=== PATIENT | male | born 1935 | race Caucasian/White ===

== ENCOUNTER 2022-01-20 21:53 | Inpatient (IN) | payer OTHER ==
[~2022-01-20] VITALS: Ht 177.8 cm; Wt 104.4 kg
--- NOTE | 2022-01-20 21:54 | NUR ---
Placed in room 2 . Placed on career education teacher, blood pressure machine and pulse oximeter. To gown for exam. Side rails up.Triage by Aide at the bedside. Report given to Primary nurse Trixie by Aide PALACIOS.
--- NOTE | 2022-01-20 21:57 | NUR ---
Patient BIB [facility] from home for c/o left sided facial drooping. Patient's daughter noted patient had left side facial drooping and drooling from left side of mouth approx 7 today. Patient reports pain 0/10 at this time. Patient has hx of DM; BS 191 at this time. Patient A/Ox3, GCS, VSS, resp even and unlabored. Patient denies chest pain and/or SOB at this time. Patient's daughter at bedside. Patient lying in bed with safety precautions in place and connected to monitor.
--- NOTE | 2022-01-20 21:57 | NUR ---
TREVON Bird at bedside examining patient.
--- NOTE | 2022-01-20 22:00 | NUR ---
CODE STROKE ACTIVATED.
--- NOTE | 2022-01-20 22:00 | NUR ---
# 20 gauge angiocath placed to left AC. Use of asceptic technique. Opsite placed over site. Blood return noted. Blood for lab drawn from site. Flushed with 10 cc of normal saline. No evidence of infiltration noted. Patient tolerated well.
--- NOTE | 2022-01-20 22:09 | NUR ---
PT TAKEN TO CT VIA G[facility]EXA ACCOMPANIED BY PRIMARY NURSE JOVAN.
[2022-01-20 22:20] LABS: BASOPHILS # (AUTO) 0.1 K/uL (0.0-0.2); BASOPHILS % (AUTO) 0.7 % (0.0-2.0); EOSINOPHILS # (AUTO) 0.2 K/uL (0.0-0.4); HEMATOCRIT 32.9 % (36-54); HEMOGLOBIN 11.6 g/dL (14.0-18.0); LYMPHOCYTES # (AUTO) 1.3 K/uL (1.0-5.5); LYMPHOCYTES % (AUTO) 14.9 % (20.5-51.5); MEAN CORPUSCULAR HEMOGLOBIN 30 pg (27-31); MEAN CORPUSCULAR HGB CONC 35 % (32-36); MEAN CORPUSCULAR VOLUME 85 fL (79.0-98.0); MONOCYTES # (AUTO) 0.6 K/uL (0.0-1.0); MONOCYTES % (AUTO) 6.3 % (1.7-9.3); NEUTROPHILS # (AUTO) 6.9 K/uL (1.8-7.7); NEUTROPHILS % (AUTO) 76.1 % (40.0-70.0); PLATELET COUNT (AUTO) 271 K/uL (130-430); RED BLOOD CELL COUNT(AUTO) 3.86 MIL/uL (4.2-6.2)
--- NOTE | 2022-01-20 22:20 | NUR ---
PT BACK TO ER FROM CT.
[2022-01-20 22:33] LABS: ANION GAP 9 (5-15); CALCIUM 8.7 mg/dL (8.4-11.0); CHLORIDE 103 mmol/L (98-107); CREATININE 1.86 mg/dL (0.55-1.30); GLUCOSE 193 mg/dL (70-99); UREA NITROGEN, BLOOD 25 mg/dL (8-21)
--- NOTE | 2022-01-20 22:34 | NUR ---
Tele neurologist Yajaira speaking and examining patient via tele med Aditya.
[2022-01-20 22:39] LABS: PROTHROMBIN TIME 9.8 SECS (9.5-12.5)
[2022-01-20 22:41] LABS: ALANINE AMINOTRANSFERASE 15 U/L (12-78); ALBUMIN 3.5 g/dL (3.4-4.8); ASPARTATE AMINOTRANSFERASE 19 U/L (10-37); TOTAL BILIRUBIN 0.5 mg/dL (0.0-1.0)
--- NOTE | 2022-01-20 22:44 | NUR ---
COVID SAMPLE COLLECTED AND SENT TO LAB
[2022-01-20] MEDS ORDERED: ASPIRIN 325 MG TABLET PO ONE (22:45)
--- NOTE | 2022-01-20 23:11 | NUR ---
Patient's daughter states she will go home to find patient's medication and will bring in later today. Patient's med rec is pending daughter's call for medication verification.
[2022-01-20] MEDS ORDERED: NACL 0.9% 1,000 ML IV ONE (23:45)
--- NOTE | 2022-01-21 00:55 | NUR ---
ER MD Manzo at bedside speaking with patient's daughter and son at bedside.
--- NOTE | 2022-01-21 01:12 | NUR ---
Received call from patient's daughter, Silke Escalona stating patient's home medications for medication rec. Medications inputed into chart.
[2022-01-21] MEDS ORDERED: INSU100V9 SQ (01:30)
[2022-01-21] MEDS ORDERED: LEVO100T9 PO (01:30)
[2022-01-21] MEDS ORDERED: SIMV-43 PO (01:30)
[2022-01-21] MEDS ORDERED: LOSA50TA3 PO (01:30)
--- NOTE | 2022-01-21 02:14 | NUR ---
Patient resting in bed with side rails raised. Patient's son at bedside. Nad noted at this time.
--- NOTE | 2022-01-21 02:30 | NUR ---
Admit bed requested Patient will be admitted to care of Dr Mead. Admitted to Tele unit. Diagnosis Stroke Inpatient (Yes or No) yes Observation (Yes or No) no Orientation concerns or request close to nursing station (Yes or No) no Covid Status negative On vent or bipap no Isolation requirements no Needs a sitter no From Home (Yes or if No enter name of facility) home Requires Dialysis (Yes or No) no Med Rec Completed (Yes of No) yes
--- NOTE | 2022-01-21 03:30 | NUR ---
Patient will be admitted to care of Dr Mead. Admitted to Tele unit. Will go to room 132A. Belongings list completed. Complete and up to date summary report printed. SBAR report given to PHILIP Saldana at bedside with opportunity for questions.
--- NOTE | 2022-01-21 04:00 | NUR ---
neuro assessment attended to.bedside swallow attended to.pt.has passed the bedside swallow.note no compromise to swallow capacity;function.
--- NOTE | 2022-01-21 04:00 | NUR ---
pt.received via er-dept.pt.admit dx:cva.to attend to the cva/stroke protocol interventions.no c/o pain,nausea.pt.ordered npo diet status following bedside swallow.pt.presents iv access location lt.hand.cutaneous assessment.pt.absent wounds.call light/telephone placed w/in access of the pt.
[2022-01-21 04:30] VITALS: BP_SYST 147
--- NOTE | 2022-01-21 05:56 | NUR ---
CONSULTATION PAGED/CALLED Reason for Consultation: STROKE Person Who was Notified: DR DIAZ VIA TEXT Consulting Physician: DR DIAZ Crime Lab Technician Specialty: Ordering Physician: YAEL
--- NOTE | 2022-01-21 06:46 | NUR ---
pt.assessed.blood glucose assessed value:98mg/dl.no c/o pain,nausea.pt.assessed for cleanliness.pt.cleaned.pt.capable to reposition self.call light/telephone placed w/in access of the pt.pt.
[2022-01-21 08:00] VITALS: BP_SYST 148
--- NOTE | 2022-01-21 08:10 | NUR ---
Initial note Received patient awake, alert/oriented x4, verbalizes needs known. Observe left facial droop, no slurred speech no c/o numbness or tingling, speech clear. Vital signs normal, SR on playground monitor. No c/o SOB/ discomfort or pain, no signs distress. Respiration even and unlabored, lungs clear. IV saline lock to left hand patent, no sign of infiltration. All safety measure are secured, bed in low position, call light w/in reached, continue to monitor.
--- NOTE | 2022-01-21 09:43 | NUR ---
SWALLOW EVALUATION LEFT MESSAGE TO SPEECH THERAPY TO AND MADE AWARE OF CONSULT. PER JULES WHITTEN HE ALREADY TEXTED THE SPEECH THERAPY RE SWALLOW EVAL.
[2022-01-21] MEDS ORDERED: LEVOTHYROXINE SODIUM 0.1 MG TABLET PO ONE (09:45)
[2022-01-21] MEDS ORDERED: LOSARTAN POTASSIUM 50 MG TABLET (COZAAR) PO ONE (09:45)
[2022-01-21] MEDS ORDERED: GLUCOSE (DEXTROSE) ORAL GEL -Adults PO PRN (10:15)
[2022-01-21] MEDS ORDERED: D5W 1,000 ML IV PRN (10:15)
[2022-01-21] MEDS ORDERED: DEXTROSE 50%-WATER 50 ML DISP.SYRIN IVP PRN (10:15)
--- NOTE | 2022-01-21 12:00 | NUR ---
Rounding Patient stable, no c/o SOB/chest discomfort, Dr. Mead/family at bedside
--- NOTE | 2022-01-21 12:18 | NUR ---
CONSULTATION PAGED/CALLED Reason for Consultation: [] CVA Person Who was Notified: [] [facility] [place] BY DR CONLEY Consulting Physician: [] [facility] [place] COVERING DR EDGE Ux Interaction Designer Specialty: [] CARDIO Ordering Physician: [] DR CONLEY
[2022-01-21 12:21] LABS: ANION GAP 6 (5-15); CALCIUM 8.5 mg/dL (8.4-11.0); CHLORIDE 106 mmol/L (98-107); CREATININE 1.71 mg/dL (0.55-1.30); GLUCOSE 107 mg/dL (70-99); UREA NITROGEN, BLOOD 24 mg/dL (8-21)
--- NOTE | 2022-01-21 13:05 | NUR ---
Notes (Neurologist)at bedside seeing patient, family at bedside
[2022-01-21] MEDS ORDERED: ASPIRIN 81 MG TABLET(ECOTRIN) PO ONE (13:45)
[2022-01-21 14:20] VITALS: BP_SYST 126
--- NOTE | 2022-01-21 15:20 | NUR ---
CONSULTATION PAGED/CALLED Reason for Consultation: [] HX OF BLADDER CA Person Who was Notified: [] DR Alex SPENCER Consulting Physician: [] DR Alex SPENCER Drum Tester Specialty: [] UROLOGIST Ordering Physician: [] DR CONLEY
--- NOTE | 2022-01-21 16:00 | NUR ---
Rounding No c/o pain/chest discomfort, no signs of distress, all safety secured, continue to monitor
--- NOTE | 2022-01-21 16:07 | NUR ---
Clarified the Stat ECHO order, but [facility] said that it can be done tomorrow.
--- NOTE | 2022-01-21 16:16 | NUR ---
Notes Therapist at bedside for speech and swallow eval.
[2022-01-21] MEDS ORDERED: METOPROLOL SUCCINATE 25 MG TAB.SR.24H (TOPROL XL) PO ONE (16:30)
[2022-01-21] MEDS ORDERED: ATORVASTATIN 20 MG TABLET PO ONE (16:30)
--- NOTE | 2022-01-21 16:33 | NUR ---
PT WAS SEEN FOR DYSPHAGIA. PT WA SABLE TO SAFELY SWALLOW PUREE DIET WITH THIN LIQUID. MILD DIFFICULTY WITH MASTICATION SKILLS. RECOMMENDATION PUREE DIET WITH THIN LIQUID
[2022-01-21] MEDS: INSULIN REGULAR, HUMAN 100 UNITS/ML, 3 ML VIAL (humuLIN R) SUBCUT PRN ×2 (17:25→23:02)
--- NOTE | 2022-01-21 18:30 | NUR ---
Closing note No c/o pain/SOB, or chest discomfort, left facial droop, speech dysarthric, vital signs w/in norm, will endorse to oncoming nurse
[2022-01-21 18:45] VITALS: BP_SYST 148
[2022-01-21] MEDS ORDERED: SIMVASTATIN 20 MG TABLET PO SCH (21:00)
[2022-01-22 00:47] VITALS: BP_SYST 145
[2022-01-22 03:15] LABS: BILIRUBIN,URINE NEGATIVE (NEGATIVE); BLOOD, URINE 1+ (NEGATIVE); CLARITY/URINE CLEAR (CLEAR); COLOR,URINE YELLOW (YELLOW); GLUCOSE,URINE TRACE (NEGATIVE); KETONES,URINE NEGATIVE (NEGATIVE); LEUKOCYTE ESTERASE ,URINE NEGATIVE (NEGATIVE); NITRITE, URINE NEGATIVE (NEGATIVE); PROTEIN URINE 2+ (NEGATIVE); UROBILINOGEN,URINE 0.2 (0.2-1.0)
[2022-01-22 03:41] LABS: BARBITURATE, URINE NEGATIVE (NEG <=200); BENZODIAZEPINE, URINE NEGATIVE (NEG <=150); CANNABINOID, URINE NEGATIVE (NEG <=50); COCAINE, URINE NEGATIVE (NEG <=150); METHAMPHETAMINES SCREEN,URINE NEGATIVE (NEG <=500); OPIATE, URINE NEGATIVE (NEG <=100); PHENCYCLIDINE SCREEN,URINE NEGATIVE (NEG <=25); UR TRICYCLIC ANTIDEPRESSANTS NEGATIVE (NEG <=300); URINE AMPHETAMINE NEGATIVE (NEG <=500); URINE METHADONE NEGATIVE (NEG <=200); URINE OXYCODONE SCREEN NEGATIVE (NEG <=100); URINE PROPOXYPHENE SCREEN NEGATIVE (NEG <=300)
[2022-01-22 04:06] LABS: BACTERIA,URINE None Seen /HPF (None Seen); MUCUS,URINE 1+ /LPF (None Seen); WBC,URINE 0-3 /HPF (0-3)
[2022-01-22] MEDS: LEVOTHYROXINE SODIUM 0.1 MG TABLET PO SCH (06:50)
[2022-01-22 08:10] LABS: BASOPHILS # (AUTO) 0.1 K/uL (0.0-0.2); BASOPHILS % (AUTO) 0.6 % (0.0-2.0); EOSINOPHILS # (AUTO) 0.2 K/uL (0.0-0.4); EOSINOPHILS % (AUTO) 1.8 % (0.0-4.0); HEMATOCRIT 32.4 % (36-54); HEMOGLOBIN 11.4 g/dL (14.0-18.0); LYMPHOCYTES % (AUTO) 9.8 % (20.5-51.5); MEAN CORPUSCULAR HEMOGLOBIN 30 pg (27-31); MEAN CORPUSCULAR HGB CONC 35 % (32-36); MEAN CORPUSCULAR VOLUME 86 fL (79.0-98.0); MONOCYTES # (AUTO) 0.6 K/uL (0.0-1.0); MONOCYTES % (AUTO) 6.4 % (1.7-9.3); NEUTROPHILS # (AUTO) 7.9 K/uL (1.8-7.7); NEUTROPHILS % (AUTO) 81.4 % (40.0-70.0); PLATELET COUNT (AUTO) 267 K/uL (130-430); RED BLOOD CELL COUNT(AUTO) 3.76 MIL/uL (4.2-6.2); RED CELL DISTRIBUTION WIDTH 14.3 % (9.0-15.0); WHITE BLOOD COUNT (AUTO) 9.8 K/uL (4.8-10.8)
[2022-01-22 08:18] VITALS: BP_SYST 188
--- NOTE | 2022-01-22 08:18 | NUR ---
INITIAL ROUNDS Received pt AAOx3, forgetful at times, neuro check and NIH done, noted slight left-sided facial droop. No s/s resp distress, no c/o pain or discomfort. Pt's BP high-Alyce Kapadia here and informed stated to give with small amount of water in spite of NPO for test. Plan of care for the day reviewed with pt-he verbalized his understanding. Pain management, disease process, skin and safety discussed-teach back done. Side rails up x3, bed alarm on and room across from nursing station for safety. Call light within reach.
[2022-01-22 08:32] LABS: ALANINE AMINOTRANSFERASE 14 U/L (12-78); ALBUMIN 3.1 g/dL (3.4-4.8); ANION GAP 8 (5-15); ASPARTATE AMINOTRANSFERASE 20 U/L (10-37); CALCIUM 8.8 mg/dL (8.4-11.0); CHLORIDE 105 mmol/L (98-107); CREATININE 1.68 mg/dL (0.55-1.30); GLUCOSE 124 mg/dL (70-99); TOTAL BILIRUBIN 0.6 mg/dL (0.0-1.0); UREA NITROGEN, BLOOD 23 mg/dL (8-21)
[2022-01-22] MEDS: ATORVASTATIN 20 MG TABLET PO SCH (09:17)
[2022-01-22] MEDS: METOPROLOL SUCCINATE 25 MG TAB.SR.24H (TOPROL XL) PO SCH (09:17)
[2022-01-22] MEDS: LOSARTAN POTASSIUM 50 MG TABLET (COZAAR) PO SCH (09:17)
--- NOTE | 2022-01-22 09:20 | NUR ---
BP MEDS/SWALLOW Pt given his BP medications-noted when pt drank through a straw he started to cough a little-immediately stopped pt. Pt able to drink water with cup without coughing-so removed all straws-will endorse to staff. Pt educated to not use a straw-pr stated okay.
[2022-01-22 11:28] VITALS: BP_SYST 152
[2022-01-22] MEDS: INSULIN REGULAR, HUMAN 100 UNITS/ML, 3 ML VIAL (humuLIN R) SUBCUT PRN ×2 (12:37→17:53)
[2022-01-22 16:10] VITALS: BP_SYST 144
--- NOTE | 2022-01-22 18:37 | NUR ---
CLOSING NOTE Pt resting quietly in bed with no s/s resp distress, no c/o pain or discomfort. Aspiration, skin and safety precautions remain in placer. Call light within reach.
[2022-01-22 20:00] VITALS: BP_SYST 121
[2022-01-23] VITALS: BP_SYST 141
[2022-01-23] MEDS: LEVOTHYROXINE SODIUM 0.1 MG TABLET PO SCH (07:05)
[2022-01-23 08:00] VITALS: BP_SYST 129
--- NOTE | 2022-01-23 08:30 | NUR ---
Initial Notes Patient is AOX4. Patient is awake, just returned from CT. HOB elevated. Patient does have a slight left face droop. No drooling. No s.s of distress noted. Breathing is even and nonlabored, on room air. No SOB noted. Patient denies pain. Vital signs obtained, as documented. Bed locked, alarm on, and at lowest position. call light within reach.
[2022-01-23] MEDS: METOPROLOL SUCCINATE 25 MG TAB.SR.24H (TOPROL XL) PO SCH (10:14)
[2022-01-23] MEDS: ATORVASTATIN 20 MG TABLET PO SCH (10:14)
[2022-01-23] MEDS: LOSARTAN POTASSIUM 50 MG TABLET (COZAAR) PO SCH (10:15)
[2022-01-23 11:13] VITALS: BP_SYST 134
--- NOTE | 2022-01-23 12:00 | NUR ---
Notes Patient is eating lunch. No s.s of distress noted. Breathing is even and nonlabored, on room air. Patient denies pain. Denies SOB. Patient denies N/V. Safety precautions in place and call light within reach.
[2022-01-23] MEDS: INSULIN REGULAR, HUMAN 100 UNITS/ML, 3 ML VIAL (humuLIN R) SUBCUT PRN ×2 (13:03→16:51)
[2022-01-23] MEDS ORDERED: ASPI-1457 PO (14:57)
[2022-01-23] MEDS ORDERED: METO-540 PO (14:57)
[2022-01-23] MEDS ORDERED: LIP20 PO (14:57)
--- NOTE | 2022-01-23 16:35 | NUR ---
ST EVALUATION COMPLETED. ST TX NOT INDICATED AT THIS TIME. RECOMMEND PUREE/THIN LIQUIDS WITH 1:1 ASSISTANCE AND FULL ASPIRATION PRECAUTIONS.
[2022-01-23 16:52] VITALS: BP_SYST 111
--- NOTE | 2022-01-23 17:00 | NUR ---
Notes Dr. Mead came to see patient. aware of MRI results. Patient okay for d/c. MD spoke to daughter.
[2022-01-23 17:15] VITALS: BP_SYST 111
--- NOTE | 2022-01-23 18:33 | NUR ---
D/C Patient Patient given medication reconciliation form and D/C instructions. Exit Care provided. Patient verbalized understanding. MD discussed with patient the results and treatment provided. Ambulatory with steady gait for discharge to home. Patient in stable condition, ID band removed. IV catheter removed, intact and dressing applied, no active bleeding. Rx of given. Patient educated on pain management. All belongings sent with patient.
--- NOTE | 2022-01-24 08:20 | NUR ---
Dispo code 01
== END 2022-01-23 18:20 | disposition home health service (06) | DRG 64 ==
LOC: SED 21:53 → STU 01-21 02:51
PROVIDERS: ADMIT Internal Medicine; ATTEND Internal Medicine
DX: I63.9 Cerebral infarction, unspecified (principal); N17.0 Acute kidney failure with tubular necrosis; E78.00 Pure hypercholesterolemia, unspecified; E03.9 Hypothyroidism, unspecified; E78.5 Hyperlipidemia, unspecified; N40.0 Benign prostatic hyperplasia without lower urinary tract symptoms; R29.702 NIHSS score 2; R29.810 Facial weakness; I12.9 Hypertensive chronic kidney disease with stage 1 through stage 4 chronic kidney disease, or unspecified chronic kidney disease; E11.22 Type 2 diabetes mellitus with diabetic chronic kidney disease; N18.9 Chronic kidney disease, unspecified; Z20.822 Contact with and (suspected) exposure to COVID-19; Z85.51 Personal history of malignant neoplasm of bladder; Z79.4 Long term (current) use of insulin; Z79.899 Other long term (current) drug therapy
CPT/HCPCS: 36415; 70450-TC; 70551; 71045; 76376; 76770; 80048; 80053; 80307; 81000; 82962; 84484; 85025; 85610-TC; 85730-TC; 86886; 86900; 86901; 92610-GN; 93005; 93306; 93880; 96360; 99285; G0378; J1815

== ENCOUNTER 2022-02-15 09:40 | Inpatient (IN) | payer OTHER ==
[~2022-02-15] VITALS: Ht 180.3 cm; Wt 102.1 kg
[2022-02-15 09:40] VITALS: BP_SYST 106
[~2022-02-15 09:40] MED LIST: ASPI-1457 PO; INSU100V9 SQ; LEVO100T9 PO; LIP20 PO; LOSA50TA3 PO; METO-540 PO
--- NOTE | 2022-02-15 09:40 | NUR ---
BROUGHT IN BY [facility] AND PLACED IN BED #4, TRIAGED. REPORT GIVEN TO BRITTA
--- NOTE | 2022-02-15 09:40 | NUR ---
TREVON Cruz at bedside examining patient.
--- NOTE | 2022-02-15 09:45 | NUR ---
RECEIVED PT IN BED #4 FROM HOME BIB BLS FOR CC OF PAIN POST MECHANICAL FALL X12 HOURS. PT IS STABLE, NAD, VSS, AAOx3, DIFFICULTY MOVING, WAS STUCK ON THE BATHROOM SHOWER CHAIR IT BROKE. PT TO BE FURTHER ASSESSED BY ED MD FOR PLAN OF CARE WITH DISPOSITION.
[2022-02-15] MEDS ORDERED: NACL 0.9% 1,000 ML IV ONE (10:00)
[2022-02-15 10:30] LABS: BASOPHILS # (AUTO) 0.1 K/uL (0.0-0.2); BASOPHILS % (AUTO) 0.6 % (0.0-2.0); HEMATOCRIT 35.4 % (36-54); HEMOGLOBIN 12.1 g/dL (14.0-18.0); LYMPHOCYTES # (AUTO) 0.5 K/uL (1.0-5.5); LYMPHOCYTES % (AUTO) 1.9 % (20.5-51.5); MEAN CORPUSCULAR HEMOGLOBIN 29 pg (27-31); MEAN CORPUSCULAR HGB CONC 34 % (32-36); MEAN CORPUSCULAR VOLUME 85 fL (79.0-98.0); MONOCYTES # (AUTO) 1.3 K/uL (0.0-1.0); MONOCYTES % (AUTO) 5.4 % (1.7-9.3); NEUTROPHILS # (AUTO) 22.3 K/uL (1.8-7.7); NEUTROPHILS % (AUTO) 92.1 % (40.0-70.0); PLATELET COUNT (AUTO) 338 K/uL (130-430); RED BLOOD CELL COUNT(AUTO) 4.15 MIL/uL (4.2-6.2); RED CELL DISTRIBUTION WIDTH 14.5 % (9.0-15.0); WHITE BLOOD COUNT (AUTO) 24.2 K/uL (4.8-10.8)
[2022-02-15 10:53] LABS: ANION GAP 15 (5-15); CHLORIDE 101 mmol/L (98-107); CREATININE 2.63 mg/dL (0.55-1.30); GLUCOSE 283 mg/dL (70-99); UREA NITROGEN, BLOOD 34 mg/dL (8-21)
[2022-02-15 11:08] LABS: PROTHROMBIN TIME 10.3 SECS (9.5-12.5)
--- NOTE | 2022-02-15 11:09 | NUR ---
LAB REPORTED LACTIC ACID 5.5, DR. AGUILAR MADE AWARE.
[2022-02-15 11:12] LABS: ALANINE AMINOTRANSFERASE 24 U/L (12-78); ALBUMIN 3.7 g/dL (3.4-4.8); ASPARTATE AMINOTRANSFERASE 49 U/L (10-37)
[2022-02-15 11:16] LABS: ACETAMINOPHEN < 1 ug/mL (1-30); ALCOHOL, BLOOD < 3 mg/dL (<10)
[2022-02-15] MEDS ORDERED: PIPERACILLIN/TAZO 3.375 GM in NS 50 ML IV ONE (11:30)
[2022-02-15] MEDS ORDERED: NACL 0.9% 1,250 ML IV ONE (11:30)
[2022-02-15] MEDS ORDERED: LINEZOLID 300 ML IV ONE (11:30)
[2022-02-15] MEDS ORDERED: PIPERACILLIN/TAZOBACTAM 3.375 GM/VIAL (ZOSYN) IV ONE (11:43)
[2022-02-15] MEDS ORDERED: MORPHINE 2 MG/ML INJ. SYRINGE IVP ONE (11:45)
[2022-02-15 12:07] LABS: CKMB RELATIVE INDEX 0.4 (0.0-2.9); CREATINE KINASE MB 9.2 ng/mL (0-3.6)
--- NOTE | 2022-02-15 13:45 | NUR ---
Admit bed requested Patient will be admitted to care of . Admitted to TELEMETRY unit. Diagnosis MECHANICAL FALL AND ERIN Inpatient (Yes or No) Y Observation (Yes or No) N Orientation concerns or request close to nursing station (Yes or No) N Covid Status PENDING On vent or bipap N Isolation requirements N Needs a sitter N From Home (Yes or if No enter name of facility) Y Requires Dialysis (Yes or No) N Med Rec Completed (Yes of No) Y
--- NOTE | 2022-02-15 15:15 | NUR ---
Patient will be admitted to care of DR. SAWANT. Admitted to TELE unit. Will go to room 132C. Belongings list completed. Complete and up to date summary report printed. SBAR report to be given at bedside with opportunity for questions.
[2022-02-15 15:20] VITALS: BP_SYST 133
--- NOTE | 2022-02-15 15:54 | NUR ---
RECEIVED PATIENT FROM ED VIA [employer]. A/O X4. VSS. AFEBRILE. RESPIRATIONS EVEN AND UNLABORED. NO SOB NOTED. PATIENT LAYING FLAT IN BED WITH NECK BRACE COLLAR IN PLACE. DENIES PAIN AT THIS TIME. PATIENT INSTRUCTED TO CONTINUE TO LAY FLAT UNTIL EVALUATED BY NEUROLOGIST. PATIENT VERBALIZED UNDERSTANDING. ORIENTED TO ROOM AND CALL LIGHT SYSTEM. NO ACUTE DISTRESS NOTED. WILL CONTINUE TO MONITOR FOR SAFETY. Serafin TURNER RN.
[2022-02-15 16:01] VITALS: BP_SYST 133
[2022-02-15 16:18] VITALS: BP_SYST 127
--- NOTE | 2022-02-15 17:51 | NUR ---
DR. CONLEY CALLED FOR ADMISSION ORDERS. DR. CONLEY STATES HE WILL BE IN LATER AND WRITE ORDER BUT GAVE A DIET ORDER AND TYLENOL 650MG PO Q6 PRN FOR MILD PAIN. Serafin GONZALEZ RN.
[2022-02-15] MEDS: 0.45% NACL 1,000 ML IV SCH (19:45)
[2022-02-15] MEDS ORDERED: TEMAZEPAM 7.5 MG CAPSULE PO SCH (21:00)
[2022-02-15] MEDS: ACETAMINOPHEN 325 MG TABLET PO PRN (21:44)
[2022-02-16] VITALS: BP_SYST 110
[2022-02-16] MEDS: 0.45% NACL 1,000 ML IV SCH ×2 (05:39→15:36)
[2022-02-16 07:11] LABS: ALANINE AMINOTRANSFERASE 34 U/L (12-78); ALBUMIN 2.7 g/dL (3.4-4.8); ANION GAP 8 (5-15); ASPARTATE AMINOTRANSFERASE 125 U/L (10-37); CALCIUM 8.4 mg/dL (8.4-11.0); CHLORIDE 106 mmol/L (98-107); CREATININE 2.19 mg/dL (0.55-1.30); GLUCOSE 213 mg/dL (70-99); TOTAL BILIRUBIN 0.8 mg/dL (0.0-1.0); UREA NITROGEN, BLOOD 34 mg/dL (8-21)
--- NOTE | 2022-02-16 07:20 | NUR ---
OPENING NOTE PT IN BED, SLEEPING WITH EVEN AND NON-LABORED BREATHING. IVF RUNNING ORDERED WITH SITE REMAIN PATENT AND INTACT. NO S/S INFILTRATION OR INFECTION NOTED. FACIAL COLLAR PLACED DUE TO S/P FALL. NO S/S OF PAIN OR DISCOMFORT NOTED. BED IS LOCKED AND AT LOW POSITION. CALL LIGHT WITHIN REACH. WILL CONT TO MONITOR
[2022-02-16 07:22] LABS: BASOPHILS % (AUTO) 0.3 % (0.0-2.0); EOSINOPHILS # (AUTO) 0.1 K/uL (0.0-0.4); EOSINOPHILS % (AUTO) 0.9 % (0.0-4.0); HEMATOCRIT 30.1 % (36-54); HEMOGLOBIN 10.7 g/dL (14.0-18.0); LYMPHOCYTES # (AUTO) 1.2 K/uL (1.0-5.5); LYMPHOCYTES % (AUTO) 9.6 % (20.5-51.5); MEAN CORPUSCULAR HEMOGLOBIN 30 pg (27-31); MEAN CORPUSCULAR HGB CONC 35 % (32-36); MEAN CORPUSCULAR VOLUME 85 fL (79.0-98.0); MONOCYTES % (AUTO) 7.8 % (1.7-9.3); NEUTROPHILS # (AUTO) 10.4 K/uL (1.8-7.7); NEUTROPHILS % (AUTO) 81.4 % (40.0-70.0); PLATELET COUNT (AUTO) 246 K/uL (130-430); RED BLOOD CELL COUNT(AUTO) 3.53 MIL/uL (4.2-6.2); RED CELL DISTRIBUTION WIDTH 14.5 % (9.0-15.0); WHITE BLOOD COUNT (AUTO) 12.8 K/uL (4.8-10.8)
[2022-02-16 08:00] VITALS: BP_SYST 96
[2022-02-16] MEDS: LOSARTAN POTASSIUM 50 MG TABLET (COZAAR) PO SCH (09:00)
[2022-02-16] MEDS: METOPROLOL SUCCINATE 25 MG TAB.SR.24H (TOPROL XL) PO SCH (09:00)
--- NOTE | 2022-02-16 10:50 | NUR ---
FAMILY MEMBER AT BEDSIDE.
[2022-02-16] MEDS ORDERED: IPRATROPIUM/ALBUTEROL SULFATE 3 ML AMPUL.NEB (DUONEB) INH PRN (12:30)
[2022-02-16 12:31] VITALS: BP_SYST 127
[2022-02-16] MEDS: ASPIRIN 81 MG TABLET(ECOTRIN) PO SCH (12:33)
[2022-02-16] MEDS: ATORVASTATIN 20 MG TABLET PO SCH (12:33)
--- NOTE | 2022-02-16 14:00 | NUR ---
AMBULATION; AMBULATES TO BATHROOM WITH WALKER WITH TWO PERSONS ASSISTANCE. PT NEEDS HELP WITH SITTING UP AND SITTING DOWN.
[2022-02-16 17:24] VITALS: BP_SYST 131
--- NOTE | 2022-02-16 18:00 | NUR ---
NOTES FAMILY MEMBER AT BEDSIDE, FEEDING PT.
--- NOTE | 2022-02-16 18:50 | NUR ---
CLOSING NOTE PT IN BED, RESTING WITH EVEN AND NON-LABORED BREATHING. IVF RUNNING ORDERED WITH SITE REMAIN PATENT AND INTACT. NO S/S INFILTRATION OR INFECTION NOTED. C COLLAR ON. NO S/S OF PAIN OR DISCOMFORT NOTED. BED IS LOCKED AND AT LOW POSITION. CALL LIGHT WITHIN REACH. REPOSITIONED. WILL ENDORSE CARE TO PRODUCTION SUPERVISOR NURSE.
[2022-02-16 20:21] VITALS: BP_SYST 123
[2022-02-16] MEDS ORDERED: NALOXONE HCL 0.4 MG/ML AMP (NARCAN) IVP PRN (20:45)
[2022-02-16] MEDS ORDERED: MORPHINE 2 MG/ML INJ. SYRINGE IVP PRN (21:00)
[2022-02-16] MEDS: TEMAZEPAM 15 MG CAPSULE PO SCH (21:14)
[2022-02-17 00:36] VITALS: BP_SYST 135
[2022-02-17] MEDS: 0.45% NACL 1,000 ML IV SCH ×3 (01:45→22:10)
--- NOTE | 2022-02-17 05:32 | NUR ---
PATIENT REMOVED HIS C-COLLAR,SAYING THAT IT IS UNCOMFORTABLE ,EDUCATION WAS DONE AND C-COLLAR PUT BACK ORDERED BY .
[2022-02-17 05:53] LABS: BASOPHILS % (AUTO) 0.3 % (0.0-2.0); EOSINOPHILS # (AUTO) 0.2 K/uL (0.0-0.4); HEMATOCRIT 26.5 % (36-54); HEMOGLOBIN 9.4 g/dL (14.0-18.0); LYMPHOCYTES # (AUTO) 1.3 K/uL (1.0-5.5); LYMPHOCYTES % (AUTO) 11.5 % (20.5-51.5); MEAN CORPUSCULAR HEMOGLOBIN 30 pg (27-31); MEAN CORPUSCULAR HGB CONC 35 % (32-36); MEAN CORPUSCULAR VOLUME 86 fL (79.0-98.0); MONOCYTES # (AUTO) 0.8 K/uL (0.0-1.0); MONOCYTES % (AUTO) 6.5 % (1.7-9.3); NEUTROPHILS # (AUTO) 9.3 K/uL (1.8-7.7); NEUTROPHILS % (AUTO) 79.7 % (40.0-70.0); PLATELET COUNT (AUTO) 224 K/uL (130-430); RED CELL DISTRIBUTION WIDTH 14.7 % (9.0-15.0); WHITE BLOOD COUNT (AUTO) 11.7 K/uL (4.8-10.8)
[2022-02-17] MEDS: LEVOTHYROXINE SODIUM 0.1 MG TABLET PO SCH (06:06)
[2022-02-17 06:07] LABS: ALANINE AMINOTRANSFERASE 30 U/L (12-78); ALBUMIN 2.4 g/dL (3.4-4.8); ANION GAP 7 (5-15); ASPARTATE AMINOTRANSFERASE 88 U/L (10-37); CALCIUM 7.5 mg/dL (8.4-11.0); CHLORIDE 103 mmol/L (98-107); CHOLESTEROL 92 mg/dL (<200); CREATININE 1.97 mg/dL (0.55-1.30); GLUCOSE 204 mg/dL (70-99); HDL CHOLESTEROL 44 mg/dL (>45); LDL CHOLESTEROL 35 mg/dL (<100); THYROID STIMULATING HORMONE 7.27 uIu/mL (0.34-4.82); TRIGLYCERIDES 140 mg/dL (30-150); UREA NITROGEN, BLOOD 31 mg/dL (8-21)
[2022-02-17 06:42] LABS: CREATINE KINASE MB 0.5 ng/mL (0-3.6)
--- NOTE | 2022-02-17 07:15 | NUR ---
OPENING NOTE PT IN BED, RESTING WITH EVEN AND NON-LABORED BREATHING. IVF RUNNING ORDERED WITH SITE REMAIN PATENT AND INTACT. NO S/S INFILTRATION OR INFECTION NOTED.NO S/S OF PAIN OR DISCOMFORT NOTED. BED IS LOCKED AND AT LOW POSITION. CALL LIGHT WITHIN REACH. REPOSITIONED. WILL CONT TO MONITOR
[2022-02-17 08:00] VITALS: BP_SYST 134
[2022-02-17] MEDS: LOSARTAN POTASSIUM 50 MG TABLET (COZAAR) PO SCH (08:41)
[2022-02-17] MEDS: ASPIRIN 81 MG TABLET(ECOTRIN) PO SCH (08:41)
[2022-02-17] MEDS: ATORVASTATIN 20 MG TABLET PO SCH (08:42)
[2022-02-17] MEDS: METOPROLOL SUCCINATE 25 MG TAB.SR.24H (TOPROL XL) PO SCH (08:42)
--- NOTE | 2022-02-17 11:09 | NUR ---
KURTIS CARPENTER; DR. HERNANDEZ AT BEDSIDE, ASSESSING PT. PROVIDED THE IMPORTANCE OF WEARING C COLLAR. Addendum: 02/17/22 at 1627 by Saray Steen RN BENIGNO
[2022-02-17 12:00] VITALS: BP_SYST 127
--- NOTE | 2022-02-17 14:23 | NUR ---
NOTSE; PT OFF C COLLAR. EDUCATED THE INDICATION OF C COLLAR. PLACE IT BACK ON PT. PT VERBALIZES UNDERSTANDING. FAMILY AT BEDSIDE, ENCOURAGED PT TO WEAR IT.
[2022-02-17 16:00] VITALS: BP_SYST 135
--- NOTE | 2022-02-17 16:36 | NUR ---
Dietitian Recommendations * CCHO, Mechanical Soft diet, Glucerna BID, Eyal BID (supplements yield 620 kcal/day, 25 gm protein/day) * Encourage good PO intakes * Consider ST escobar trevinmonica for safety LP, MS, RD Please refer to Nutrition Assessment for details. Addendum: 02/17/22 at [address] Amended: Links added.
--- NOTE | 2022-02-17 17:30 | NUR ---
NOTES; PT USES URINAL. PROVIDED MARICRUZ CARE. PT TOLERATED WELL.
--- NOTE | 2022-02-17 19:58 | NUR ---
RECEIVED PT LYING IN BED, NO DISTRESS NOTED, DENIES PAIN. HOWEVER FEELS UNCOMFORTABLE. IS REQUESTING A SLEEPING PILL. IV TO RT AC SITE CDI. BRUISING NOTED TO LUE. WEAK PULSES NOTED TO BLE. CERVICAL COLLAR IN PLACE.
[2022-02-17 20:30] VITALS: BP_SYST 137
[2022-02-17] MEDS: ACETAMINOPHEN 325 MG TABLET PO PRN (20:51)
[2022-02-17] MEDS: TEMAZEPAM 15 MG CAPSULE PO SCH (20:52)
[2022-02-18 00:27] VITALS: BP_SYST 125
[2022-02-18] MEDS: LEVOTHYROXINE SODIUM 0.1 MG TABLET PO SCH (06:29)
[2022-02-18 07:30] VITALS: BP_SYST 98
--- NOTE | 2022-02-18 07:30 | NUR ---
OPENING NOTE Patient in bed resting. A/O x 2 Ukrainian speaking. No pain, no distress, no SOB noted at this time. Patient wearing neck brace stablizer for neck fx. IV to RAC 20 g, patent and on infusion pump. Patient on bed rest, but able to walk to restroom with walker and assistance. All needs met at this time, safety precautions in place, Bed is locked in lowest position, will continue to monitor.
[2022-02-18 07:45] VITALS: BP_SYST 150
[2022-02-18] MEDS: 0.45% NACL 1,000 ML IV SCH ×3 (07:45→22:16)
[2022-02-18] MEDS: LOSARTAN POTASSIUM 50 MG TABLET (COZAAR) PO SCH (09:00)
[2022-02-18] MEDS: METOPROLOL SUCCINATE 25 MG TAB.SR.24H (TOPROL XL) PO SCH (09:00)
[2022-02-18] MEDS: ATORVASTATIN 20 MG TABLET PO SCH (09:44)
[2022-02-18] MEDS: ASPIRIN 81 MG TABLET(ECOTRIN) PO SCH (09:44)
--- NOTE | 2022-02-18 12:10 | NUR ---
Patient in bed resting, with family at bedside. No pain, no distress, no SOB noted at this time. Patient wearing neck brace stablizer for neck fx. All needs met at this time, safety precautions in place, Bed is locked in lowest position, will continue to monitor.
[2022-02-18 12:40] VITALS: BP_SYST 118
[2022-02-18 15:24] LABS: BILIRUBIN,URINE NEGATIVE (NEGATIVE); BLOOD, URINE 2+ (NEGATIVE); CLARITY/URINE CLEAR (CLEAR); COLOR,URINE YELLOW (YELLOW); GLUCOSE,URINE 1+ (NEGATIVE); KETONES,URINE NEGATIVE (NEGATIVE); LEUKOCYTE ESTERASE ,URINE NEGATIVE (NEGATIVE); NITRITE, URINE NEGATIVE (NEGATIVE); PH,URINE 5.5 (5.0-8.0); PROTEIN URINE 2+ (NEGATIVE); UROBILINOGEN,URINE 0.2 (0.2-1.0)
[2022-02-18 15:50] LABS: BACTERIA,URINE None Seen /HPF (None Seen); WBC,URINE NONE SEEN /HPF (0-3)
[2022-02-18 15:51] LABS: HYALINE CASTS, URINE 0-10 /LPF (None Seen); MUCUS,URINE None Seen /LPF (None Seen)
[2022-02-18 16:00] VITALS: BP_SYST 139
--- NOTE | 2022-02-18 18:49 | NUR ---
CLOSING NOTE Patient in bed resting. A/O x 2 Japanese speaking. No pain, no distress, no SOB noted at this time. Patient wearing neck brace stablizer for neck fx. IV to RAC 20 g, patent and on infusion pump. Patient on bed rest, but able to walk to restroom with walker and assistance, but uses urinal at night. All needs met at this time, safety precautions in place, Bed is locked in lowest position, will endorse to nightshift nurse.
--- NOTE | 2022-02-18 19:47 | NUR ---
RECEIVED PT LYING IN BED, NO DISTRESS NOTED, DENIES PAIN. AAOX3, IVF INFUSING TO RT AC SITE CDI. O2 SAT 98% RA. BRUISING NOTED TO LUE, BLANCHABLE REDNESS TO LT HEEL ELEVATED ONTO PILLOW. CERVICAL COLLAR ON. FAMILY MEMBER AT BEDSIDE.
[2022-02-18 20:15] VITALS: BP_SYST 146
[2022-02-18] MEDS: TEMAZEPAM 15 MG CAPSULE PO SCH (22:12)
[2022-02-18] MEDS: ACETAMINOPHEN 325 MG TABLET PO PRN (22:15)
[2022-02-19] VITALS (7 sets, daily range): BP systolic 128–175
--- NOTE | 2022-02-19 05:51 | NUR ---
PT REPEATEDLY IS REMOVING C-COLLAR, DESPITE EXPLANATION FOR HAVING TO CONTINUALLY HAVE IT ON.
[2022-02-19] MEDS: LEVOTHYROXINE SODIUM 0.1 MG TABLET PO SCH (06:27)
[2022-02-19 07:31] LABS: ALANINE AMINOTRANSFERASE 32 U/L (12-78); ALBUMIN 2.3 g/dL (3.4-4.8); ANION GAP 9 (5-15); ASPARTATE AMINOTRANSFERASE 54 U/L (10-37); CALCIUM 7.8 mg/dL (8.4-11.0); CHLORIDE 100 mmol/L (98-107); CREATININE 1.54 mg/dL (0.55-1.30); GLUCOSE 172 mg/dL (70-99); TOTAL BILIRUBIN 0.7 mg/dL (0.0-1.0); UREA NITROGEN, BLOOD 19 mg/dL (8-21)
--- NOTE | 2022-02-19 08:08 | NUR ---
OPENING NOTE Patient in bed resting. A/O x 2 Hebrew speaking. No pain, no distress, no SOB noted at this time. Patient wearing neck brace stabilizer for neck fx. IV to RAC 20 g, patent and on infusion pump. Patient on bed rest, with urinal next to him for his needs. All needs met at this time, safety precautions in place, Bed is locked in lowest position, will continue to monitor.
[2022-02-19] MEDS: ATORVASTATIN 20 MG TABLET PO SCH (08:37)
[2022-02-19] MEDS: ASPIRIN 81 MG TABLET(ECOTRIN) PO SCH (08:37)
[2022-02-19] MEDS: METOPROLOL SUCCINATE 25 MG TAB.SR.24H (TOPROL XL) PO SCH (08:38)
[2022-02-19] MEDS: LOSARTAN POTASSIUM 50 MG TABLET (COZAAR) PO SCH (08:38)
[2022-02-19] MEDS: 0.45% NACL 1,000 ML IV SCH ×2 (13:42→20:21)
--- NOTE | 2022-02-19 19:30 | NUR ---
OPENING NOTE Pt is lying in bed with family at bedside. C-collar is off, assisted pt to put it back on. No s/s of respiratory distress. Breathing even and unlabored on RA. IV site intact and patent with fluids running at ordered rate. Fall and safety precautions in place with bed in lowest position, bed alarm on and call light within reach
[2022-02-19] MEDS: TEMAZEPAM 15 MG CAPSULE PO SCH (20:21)
[2022-02-20] VITALS: BP_SYST 137
--- NOTE | 2022-02-20 00:15 | NUR ---
ROUNDS Pt lying in bed, eyes closed. No s/s of acute distress. Fall and safety checks in place
[2022-02-20] MEDS: LEVOTHYROXINE SODIUM 0.1 MG TABLET PO SCH (06:09)
--- NOTE | 2022-02-20 06:30 | NUR ---
CLOSING NOTE Pt is awake lying in bed. No s/s of respiratory distress. Breathing even and unlabored on RA. IV site intact and patent with fluids running at ordered rate. C-collar is on. All needs met throughout shift. Fall and safety precautions in place with bed in lowest position, bed alarm on, and call light within reach
--- NOTE | 2022-02-20 07:34 | NUR ---
OPENING NOTES RECEIVED BEDSIDE SBAR FROM PM SHIFT NURSE BED AT LOW POSITION CALL LIGHT IN REACH NO DISTRESS RESTING WELL IN BED AT 30 DEGREE, ALL SAFETY CHECKS DONE WILL CONT TO MONITOR PER ORDERS
[2022-02-20 08:09] VITALS: BP_SYST 138
[2022-02-20] MEDS: METOPROLOL SUCCINATE 25 MG TAB.SR.24H (TOPROL XL) PO SCH (08:55)
[2022-02-20] MEDS: LOSARTAN POTASSIUM 50 MG TABLET (COZAAR) PO SCH (08:55)
[2022-02-20] MEDS: ATORVASTATIN 20 MG TABLET PO SCH (08:55)
[2022-02-20] MEDS: ASPIRIN 81 MG TABLET(ECOTRIN) PO SCH (08:56)
[2022-02-20] MEDS: 0.45% NACL 1,000 ML IV SCH (09:01)
--- NOTE | 2022-02-20 11:19 | NUR ---
DR HERNANDEZ AT BEDSIDE TO EXAM PATIENT. WILL PUT IN NEW ORDERS TO D/C TO SNF
--- NOTE | 2022-02-20 12:09 | NUR ---
FAMILY AT BEDSIDE
--- NOTE | 2022-02-20 12:09 | NUR ---
ROUNDS PATIENT REMAINS STABLE NO DISTRESS, RESTING WELL IN BED, ALL SAFETY CHECK MADE, BED LOCKED AND AT LOW POSITION CALL LIGHT IN REACH, WILL CONT TO MONITOR PATIENT
[2022-02-20 12:20] VITALS: BP_SYST 150
[2022-02-20] MEDS ORDERED: ROSU5TAB PO (12:23)
--- NOTE | 2022-02-20 12:34 | NUR ---
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 Pt was not feeling well, feeling anxious b/c he wants to go home but nurses say he will be going to a rehab. Pt is barely eating d/t his mental state and also bc he said that ED lost his dentures. He is having trouble chewing. Pt attests to drinking the Glucerna shakes but not the Eyal. He does not have any wounds so Eyal could be discontinued. Current Diet Order/Nutrition Support Mechanical soft, CCHO standard carb-60 gm, Glucerna BID, Eyal BID x 3 day Patient/Significant Other Able To Verbalize Education Provided Not Indicated NEW Pertinent Medications synthroid, Lipitor, Metoprolol NEW Pertinent Labs WBC 11.7 H, Na 134 L, BUN 19 WNL, CRE 1.54 H, BG 172 H, Lactic acid 2.3 H, ALB 2.3 L Height (Feet) 5 feet Height (Inches) 11.00 inches Weight (Pounds) * stable since 02/15 225 pounds Weight (Calculated Kilograms) 102.272733 kilograms Patient Weight 102.058 kg Body Mass Index 31.38 kg/m2 Usual Weight 230 lbs %UBW 98 %IBW 131 [place]/Adjusted Body Weight 172#/78.2 kg Recent Weight Change Yes - 5# wt loss within 1 mo r/t lack of appetite per family/2% wt change Weight Status Obese Skin comment: Willi: 15 Wounds: Blanchable redness of L buttocks Edema: none documented Last BM Feb 16, 2022 per EMR Difficulty With: Swallowing Food Allergies No Current % PO Poor avg of 34% x 5 meals- Since 02/17 Estimated Energy Expenditure (kcals/day) 0837-0255 (30-35 kcal/kg IBW d/t obesity, trauma, s/p fall) Estimated Protein Required (g/day) 94-117 (1.2-1.5 gm/kg IBW d/t obesity, trauma, s/p fall) Estimated Fluid Required (l/day) 2-2.3 (25-30 ml/kg IBW d/t GERIAT maintenance) Problem/Etiology/Signs/Symptoms Suboptimal nutritional intakes R/T lack of appetite a/w swallowing difficulty AEB recent stroke, pt report, as well as poor PO intake records (ongoing) Expected Outcomes/Goals - Monitor appetite and PO intakes w/ goal of pt meeting >50% of estimated nutritional needs, labs trending WNL, normal GI function, and skin integrity/wt maintenance Dietitian Recommendations * CCHO, Mechanical Soft diet, Glucerna BID * D/C Eyal, as pt doesnt have any wounds * Encourage good PO intakes * Consider bowel regimen * Consider ST swallow eval for safety Follow Up Moderate Risk: F/U in 3- 5days
--- NOTE | 2022-02-20 12:35 | NUR ---
DAUGHTER AT BEDSIDE WANTS PATIENT TO GO HOME AND NOT A SNF REHAB WILL PAGE DR HERNANDEZ
--- NOTE | 2022-02-20 12:35 | NUR ---
Dietitian Recommendations * CCHO, Mechanical Soft diet, Glucerna BID * D/C Eyal, as pt doesnt have any wounds * Encourage good PO intakes * Consider bowel regimen * Consider ST swallow eval for safety GS, MPH, RD Please refer to RD F/U for further details
[2022-02-20 14:50] VITALS: BP_SYST 138
[2022-02-20 16:05] VITALS: BP_SYST 141
--- NOTE | 2022-02-20 16:57 | NUR ---
PATIENT'S DAUGHTER SW PT'S DAUGHTER, WHO STATED THAT SHE CANNOT MAKE APPOINTMENT WITH THE NEUROLIST UNLESS THE PATIENT HAD AN MRI. DR HERNANDEZ WAS PAGED TO GET ORDER. DAUGHTER ALSO STATED THAT PATIENT HAS HOME HEALTH ALREADY AND SHE WILL JUST NEED TO CALL THEM WHEN PATIENT GETS DISCHARGE. DAUGHTER CANNOT RECALL THE NAME OF THE HOME HEALTH
--- NOTE | 2022-02-20 17:31 | NUR ---
SPOKE WITH DR HERNANDEZ, PATIENT DONT NEED MRI OD HEAD/NECK, TO JUST GIVE COPY OF CT CERVICAL SPINE SCAN DAUGHTER AWARE
--- NOTE | 2022-02-20 18:05 | NUR ---
SPOKE WITH DAUGHTER, REFUSES TO REGIONAL RECRUITER PATIENT, STATING NEEDS MRI FIRST, PRIMARY DOCTOR DR RAYMOND WILL ORDER IT WHILE HERE IN HOSPITAL. PAGE OUT TO DR HERNANDEZ CHARGE NURSE AWARE
--- NOTE | 2022-02-20 18:42 | NUR ---
CLOSING NOTES PATIENT REMAINS STABLE ALL NEED MEET, CALL LIGHT IN REACH, BED LOCKED AND AT LOW POSITION, WILL GIVE PM SHIFT NURSE BEDSIDE SBAR
--- NOTE | 2022-02-20 19:40 | NUR ---
PM ASSESSMENT; -Pt is a/o2-3, resting in bed comfortably. No s/s any pain,sob,or any acute distress. IV site patent well flushed w/ NS, no s/s any infiltration noted. BSC with assistance. Discussed poc,all safety measures, pt verbalized understanding. Fall precaution in place. Bed alarmed,side railsx3,call light w/in reach. Cont to monitor pt.
--- NOTE | 2022-02-20 20:00 | NUR ---
D/C Patient Home Patient given medication reconciliation form and D/C instructions. Exit Care provided. Patient, Silke, and verbalized understanding. MD discussed with patient the results and treatment provided. Transferred pt with a neck collar applied via a wheelchair to private care for discharge to home. Patient in stable condition, ID band removed. IV catheter removed, intact and dressing applied, no active bleeding. Patient educated on pain management. All belongings sent with patient. Pt denies any chest pain,pain, or any acute distress, no s/s any acute distress noted. VSS. Home discharge instructions given to dtr. Addendum: 02/20/22 at 2209 by Otilia Cam RN RN ADDITIONAL NOTES; VS 98.0,20,123/56,96,X2DMB=26J% R/A.
== END 2022-02-20 20:00 | disposition home health service (06) | DRG 551 ==
LOC: SED 09:40 → STU 13:42
PROVIDERS: ADMIT Internal Medicine; ATTEND Internal Medicine
PROC: 2W32XYZ Immobilization of Neck using Other Device (ICD-10-PCS; principal; 2022-02-15)
DX: S12.201A Unspecified nondisplaced fracture of third cervical vertebra, initial encounter for closed fracture (principal); N17.0 Acute kidney failure with tubular necrosis; R65.10 Systemic inflammatory response syndrome (SIRS) of non-infectious origin without acute organ dysfunction; F03.90 Unspecified dementia, unspecified severity, without behavioral disturbance, psychotic disturbance, mood disturbance, and anxiety; M47.812 Spondylosis without myelopathy or radiculopathy, cervical region; E78.5 Hyperlipidemia, unspecified; M47.817 Spondylosis without myelopathy or radiculopathy, lumbosacral region; W18.39XA Other fall on same level, initial encounter; I45.10 Unspecified right bundle-branch block; I12.9 Hypertensive chronic kidney disease with stage 1 through stage 4 chronic kidney disease, or unspecified chronic kidney disease; Z20.822 Contact with and (suspected) exposure to COVID-19; E11.22 Type 2 diabetes mellitus with diabetic chronic kidney disease; N18.30 Chronic kidney disease, stage 3 unspecified; K57.30 Diverticulosis of large intestine without perforation or abscess without bleeding; Z87.891 Personal history of nicotine dependence; Z86.73 Personal history of transient ischemic attack (TIA), and cerebral infarction without residual deficits; Z85.51 Personal history of malignant neoplasm of bladder; Z79.899 Other long term (current) drug therapy; Z79.82 Long term (current) use of aspirin; Z79.4 Long term (current) use of insulin; Z74.01 Bed confinement status; Y93.89 Activity, other specified; Y92.89 Other specified places as the place of occurrence of the external cause; Y99.8 Other external cause status
CPT/HCPCS: 36415; 70450-TC; 71045; 72125-TC; 72128; 72131; 72170-TC; 72192-TC; 76376; 80053; 80061; 81000; 82550; 82553; 83605; 83735; 83880; 83935; 84302; 84443; 84484; 85025; 85610-TC; 85730-TC; 87040; 93005; 94640; 94760; 96365; 96368; 96375; 97110-GP; 97116-GP; 97530-GP; 99285; G0378; G0480; G0481; G0482; J2020; J2270; J2543; J7030; J7042

== ENCOUNTER 2022-06-09 14:14 | Emergency (ER) | payer OTHER ==
[~2022-06-09] VITALS: Ht 177.8 cm; Wt 80.7 kg
[~2022-06-09 14:14] MED LIST changes: -LIP20 PO; +ROSU5TAB PO
[2022-06-09 14:16] VITALS: BP_SYST 92
--- NOTE | 2022-06-09 14:20 | NUR ---
PT RECEIVED, CARE ASSUMED. PT BIB EMS FOR NEAR SYNCOPE EPISODE. PT IS COOL TO THE TOUCH, PALE. CONNECTED TO TELE MONITOR: SB 52. STARTED NS0.9 IVF. WILL CONTINUE TO MONITOR.
--- NOTE | 2022-06-09 14:24 | NUR ---
DR WOO AT BEDSIDE
[2022-06-09] MEDS ORDERED: NACL 0.9% 1,000 ML IV ONE (14:30)
[2022-06-09 14:40] LABS: BASOPHILS % (AUTO) 0.8 % (0.0-2.0); EOSINOPHILS # (AUTO) 0.1 K/uL (0.0-0.4); EOSINOPHILS % (AUTO) 2.1 % (0.0-4.0); HEMATOCRIT 26.8 % (36-54); HEMOGLOBIN 9.3 g/dL (14.0-18.0); LYMPHOCYTES % (AUTO) 16.4 % (20.5-51.5); MEAN CORPUSCULAR HEMOGLOBIN 31 pg (27-31); MEAN CORPUSCULAR HGB CONC 35 % (32-36); MEAN CORPUSCULAR VOLUME 88 fL (79.0-98.0); MONOCYTES # (AUTO) 0.4 K/uL (0.0-1.0); MONOCYTES % (AUTO) 6.8 % (1.7-9.3); NEUTROPHILS # (AUTO) 4.5 K/uL (1.8-7.7); NEUTROPHILS % (AUTO) 73.9 % (40.0-70.0); PLATELET COUNT (AUTO) 241 K/uL (130-430); RED BLOOD CELL COUNT(AUTO) 3.05 MIL/uL (4.2-6.2); RED CELL DISTRIBUTION WIDTH 13.7 % (9.0-15.0)
[2022-06-09 14:52] LABS: ANION GAP 8 (5-15); CHLORIDE 103 mmol/L (98-107); CREATININE 1.85 mg/dL (0.55-1.30); GLUCOSE 198 mg/dL (70-99); UREA NITROGEN, BLOOD 21 mg/dL (8-21)
[2022-06-09 14:54] LABS: PROTHROMBIN TIME 10.8 SECS (9.5-12.5)
[2022-06-09 15:08] LABS: ALANINE AMINOTRANSFERASE 16 U/L (12-78); ALBUMIN 2.8 g/dL (3.4-4.8); ASPARTATE AMINOTRANSFERASE 10 U/L (10-37); TOTAL BILIRUBIN 0.5 mg/dL (0.0-1.0)
[2022-06-09 16:10] VITALS: BP_SYST 119
== END 2022-06-09 16:10 | disposition home or self-care (01) ==
LOC: SED 14:14
DX: R55 Syncope and collapse (principal); E11.9 Type 2 diabetes mellitus without complications; I10 Essential (primary) hypertension; Z79.899 Other long term (current) drug therapy
CPT/HCPCS: 99285; 96360; 70450; 71045; 80053; 82550; 85025; 85610; 85730; 84484; 36415; 93005; 76376; 83605; J7030

== ENCOUNTER 2023-01-28 22:56 | Emergency (ER) | payer OTHER ==
[~2023-01-28] VITALS: Ht 180.3 cm; Wt 63.5 kg
[~2023-01-28 22:56] MED LIST changes: +LOSA-413 PO; -LOSA50TA3 PO
[2023-01-28 23:01] VITALS: BP_SYST 100; PULSE 103; RESP 20; TEMP 97.8; O2SAT 97
[2023-01-28] MEDS ORDERED: NACL 0.9% 1,000 ML IV ONE (23:30)
[2023-01-28 23:56] LABS: BASOPHILS % (AUTO) 0.4 % (0.0-2.0); LYMPHOCYTES # (AUTO) 0.3 K/uL (1.0-5.5); MEAN CORPUSCULAR VOLUME 86 fL (79.0-98.0); MONOCYTES # (AUTO) 0.3 K/uL (0.0-1.0)
[2023-01-29 00:02] LABS: EOSINOPHILS # (AUTO) 0.1 K/uL (0.0-0.4); EOSINOPHILS % (AUTO) 0.7 % (0.0-4.0); HEMATOCRIT 34.5 % (36-54); HEMOGLOBIN 11.7 g/dL (14.0-18.0); MEAN CORPUSCULAR HEMOGLOBIN 29 pg (27-31); MEAN CORPUSCULAR HGB CONC 34 % (32-36); MONOCYTES % (AUTO) 3.6 % (1.7-9.3); NEUTROPHILS # (AUTO) 8.7 K/uL (1.8-7.7); NEUTROPHILS % (AUTO) 92.3 % (40.0-70.0); PLATELET COUNT (AUTO) 299 K/uL (130-430); RED CELL DISTRIBUTION WIDTH 14.4 % (9.0-15.0); WHITE BLOOD COUNT (AUTO) 9.4 K/uL (4.8-10.8)
[2023-01-29 00:17] LABS: ANION GAP 8 (5-15); CALCIUM 9.1 mg/dL (8.4-11.0); CARBON DIOXIDE 29 mmol/L (23-29); CHLORIDE 101 mmol/L (98-107); CREATININE 1.81 mg/dL (0.55-1.30); GLUCOSE 179 mg/dL (74-106); POTASSIUM 4.5 mmol/L (3.5-5.1); SODIUM SERUM 138 mmol/L (136-145); UREA NITROGEN, BLOOD 28 mg/dL (8-21)
[2023-01-29 00:32] LABS: ALANINE AMINOTRANSFERASE 21 U/L (12-78); ALBUMIN 3.3 g/dL (3.4-4.8); ASPARTATE AMINOTRANSFERASE 12 U/L (10-37); TOTAL BILIRUBIN 0.6 mg/dL (0.0-1.0); TOTAL PROTEIN, SERUM 7.1 g/dL (6.4-8.3)
[2023-01-29 02:11] LABS: BILIRUBIN,URINE NEGATIVE (NEGATIVE); BLOOD, URINE NEGATIVE (NEGATIVE); COLOR,URINE YELLOW (YELLOW); GLUCOSE,URINE NEGATIVE (NEGATIVE); KETONES,URINE NEGATIVE (NEGATIVE); LEUKOCYTE ESTERASE ,URINE NEGATIVE (NEGATIVE); NITRITE, URINE NEGATIVE (NEGATIVE); PROTEIN URINE 2+ (NEGATIVE); UROBILINOGEN,URINE 0.2 (0.2-1.0)
[2023-01-29 02:25] LABS: CLARITY/URINE HAZY (CLEAR); RBC,URINE 0-3 /HPF (0-3)
[2023-01-29 02:26] LABS: BACTERIA,URINE None Seen /HPF (None Seen); WBC,URINE 0-3 /HPF (0-3)
[2023-01-29 02:45] VITALS: BP_SYST 124; PULSE 88; RESP 18; TEMP 98.4; O2SAT 97
== END 2023-01-29 02:45 | disposition home or self-care (01) ==
LOC: SED 22:56
DX: Z04.3 Encounter for examination and observation following other accident (principal); E11.9 Type 2 diabetes mellitus without complications; I10 Essential (primary) hypertension; Z79.899 Other long term (current) drug therapy
CPT/HCPCS: 99285; 71045; 80053; 81000; 81001; 82962; 85025; 87040; 36415; 93005; 83605; 96360; 81015; J7030

== ENCOUNTER 2023-07-10 10:10 | Inpatient (IN) | payer OTHER ==
[~2023-07-10] VITALS: Ht 180.3 cm; Wt 79.8 kg
[~2023-07-10 10:10] MED LIST changes: +METO-304 PO; -METO-540 PO
[2023-07-10 10:22] VITALS: BP_SYST 106; PULSE 111; RESP 18; TEMP 97.8; O2SAT 100
[2023-07-10] MEDS: NS 1000 ML IV.SOLN IV ONE (10:47)
[2023-07-10 11:10] LABS: BASOPHILS % (AUTO) 0.2 % (0.0-2.0); EOSINOPHILS % (AUTO) 0.1 % (0.0-4.0); HEMATOCRIT 25.5 % (36-54); HEMOGLOBIN 8.9 g/dL (14.0-18.0); LYMPHOCYTES # (AUTO) 0.5 K/uL (1.0-5.5); LYMPHOCYTES % (AUTO) 2.9 % (20.5-51.5); MEAN CORPUSCULAR HEMOGLOBIN 30 pg (27-31); MEAN CORPUSCULAR HGB CONC 35 % (32-36); MEAN CORPUSCULAR VOLUME 87 fL (79.0-98.0); MONOCYTES # (AUTO) 0.9 K/uL (0.0-1.0); MONOCYTES % (AUTO) 5.7 % (1.7-9.3); NEUTROPHILS # (AUTO) 14.7 K/uL (1.8-7.7); NEUTROPHILS % (AUTO) 91.1 % (40.0-70.0); PLATELET COUNT (AUTO) 291 K/uL (130-430); RED BLOOD CELL COUNT(AUTO) 2.92 MIL/uL (4.2-6.2); RED CELL DISTRIBUTION WIDTH 13.7 % (9.0-15.0); WHITE BLOOD COUNT (AUTO) 16.2 K/uL (4.8-10.8)
[2023-07-10 11:24] LABS: PROTHROMBIN TIME 10.2 SECS (9.5-12.5)
[2023-07-10 11:28] LABS: ALANINE AMINOTRANSFERASE 14 U/L (12-78); ALBUMIN 2.8 g/dL (3.4-4.8); ANION GAP 10 (5-15); ASPARTATE AMINOTRANSFERASE 11 U/L (10-37); CALCIUM 7.8 mg/dL (8.4-11.0); CARBON DIOXIDE 23 mmol/L (23-29); CHLORIDE 107 mmol/L (98-107); CREATININE 2.21 mg/dL (0.55-1.30); GLUCOSE 198 mg/dL (74-106); POTASSIUM 4.2 mmol/L (3.5-5.1); SODIUM SERUM 140 mmol/L (136-145); TOTAL BILIRUBIN 0.7 mg/dL (0.0-1.0); TOTAL PROTEIN, SERUM 6.5 g/dL (6.4-8.3); UREA NITROGEN, BLOOD 33 mg/dL (8-21)
[2023-07-10 11:30] LABS: BILIRUBIN,DIRECT 0.2 mg/dL (0.0-0.3)
[2023-07-10] MEDS: cefTRIAXone 1 GM IVPB PREMIX 50 ML IV ONE (12:11)
[2023-07-10 14:03] LABS: BILIRUBIN,URINE NEGATIVE (NEGATIVE); BLOOD, URINE TRACE (NEGATIVE); CLARITY/URINE CLEAR (CLEAR); COLOR,URINE YELLOW (YELLOW); GLUCOSE,URINE NEGATIVE (NEGATIVE); KETONES,URINE NEGATIVE (NEGATIVE); LEUKOCYTE ESTERASE ,URINE NEGATIVE (NEGATIVE); NITRITE, URINE NEGATIVE (NEGATIVE); PROTEIN URINE 2+ (NEGATIVE); UROBILINOGEN,URINE 0.2 (0.2-1.0)
[2023-07-10 14:26] LABS: BACTERIA,URINE None Seen /HPF (None Seen); WBC,URINE NONE SEEN /HPF (0-3)
[2023-07-10] MEDS ORDERED: INSULIN LISPRO SLIDING SCALE 100 UNITS/ML, 3 ML VIAL (humaLOG) SUBCUT PRN (16:15)
[2023-07-10] MEDS ORDERED: PIPERACILLIN/TAZOBACTAM 2.25 GM in D5W 50 ML IV SCH (18:00)
[2023-07-10 18:15] VITALS: BP_SYST 112; PULSE 97; RESP 17; TEMP 97.4; O2SAT 97
[2023-07-10] MEDS: D5/0.45 NS 1,000 ML IV ONE (19:10)
[2023-07-10 20:00] VITALS: BP_SYST 108; PULSE 95; RESP 18; TEMP 97.2; O2SAT 98
[2023-07-10] MEDS ORDERED: VANCOMYCIN HCL 1.25 GM/NS 250 ML IV ONE (20:00)
[2023-07-10] MEDS: INSULIN GLARGINE 100 UNITS/ML, 10 ML VIAL SQ SCH (21:00)
[2023-07-10] MEDS: PIPERACILLIN/TAZOBACTAM 2.25 GM in D5W 50 ML IV SCH (21:31)
[2023-07-11] VITALS: BP_SYST 106; PULSE 89; RESP 18; TEMP 97.6; O2SAT 95
[2023-07-11 04:00] VITALS: BP_SYST 107; PULSE 90; RESP 18; TEMP 97.4
[2023-07-11 06:06] LABS: BASOPHILS % (AUTO) 0.4 % (0.0-2.0); EOSINOPHILS # (AUTO) 0.3 K/uL (0.0-0.4); EOSINOPHILS % (AUTO) 3.4 % (0.0-4.0); HEMOGLOBIN 7.8 g/dL (14.0-18.0); LYMPHOCYTES # (AUTO) 1.2 K/uL (1.0-5.5); LYMPHOCYTES % (AUTO) 12.7 % (20.5-51.5); MEAN CORPUSCULAR HEMOGLOBIN 31 pg (27-31); MEAN CORPUSCULAR HGB CONC 36 % (32-36); MEAN CORPUSCULAR VOLUME 86 fL (79.0-98.0); MONOCYTES # (AUTO) 0.7 K/uL (0.0-1.0); MONOCYTES % (AUTO) 7.5 % (1.7-9.3); NEUTROPHILS # (AUTO) 7.3 K/uL (1.8-7.7); PLATELET COUNT (AUTO) 253 K/uL (130-430); RED BLOOD CELL COUNT(AUTO) 2.54 MIL/uL (4.2-6.2); RED CELL DISTRIBUTION WIDTH 14.1 % (9.0-15.0); WHITE BLOOD COUNT (AUTO) 9.6 K/uL (4.8-10.8)
[2023-07-11 06:30] LABS: ANION GAP 9 (5-15); CALCIUM 7.4 mg/dL (8.4-11.0); CARBON DIOXIDE 23 mmol/L (23-29); CHLORIDE 109 mmol/L (98-107); CREATININE 1.81 mg/dL (0.55-1.30); GLUCOSE 100 mg/dL (74-106); POTASSIUM 3.6 mmol/L (3.5-5.1); SODIUM SERUM 141 mmol/L (136-145); UREA NITROGEN, BLOOD 27 mg/dL (8-21)
[2023-07-11] MEDS: LEVOTHYROXINE SODIUM 0.1 MG TABLET PO SCH (06:39)
[2023-07-11 06:56] LABS: HEMATOCRIT 21.8 % (36-54)
[2023-07-11 12:03] VITALS: BP_SYST 108; PULSE 88; RESP 17; TEMP 97.5; O2SAT 97
[2023-07-11] MEDS: ASPIRIN 81 MG TABLET(ECOTRIN) PO SCH (12:50)
[2023-07-11 16:25] LABS: BASOPHILS % (AUTO) 0.4 % (0.0-2.0); EOSINOPHILS # (AUTO) 0.4 K/uL (0.0-0.4); EOSINOPHILS % (AUTO) 4.7 % (0.0-4.0); HEMATOCRIT 22.9 % (36-54); HEMOGLOBIN 8.2 g/dL (14.0-18.0); LYMPHOCYTES # (AUTO) 0.9 K/uL (1.0-5.5); LYMPHOCYTES % (AUTO) 11.2 % (20.5-51.5); MEAN CORPUSCULAR HEMOGLOBIN 31 pg (27-31); MEAN CORPUSCULAR HGB CONC 36 % (32-36); MEAN CORPUSCULAR VOLUME 85 fL (79.0-98.0); MONOCYTES # (AUTO) 0.5 K/uL (0.0-1.0); MONOCYTES % (AUTO) 6.2 % (1.7-9.3); NEUTROPHILS # (AUTO) 6.4 K/uL (1.8-7.7); NEUTROPHILS % (AUTO) 77.5 % (40.0-70.0); PLATELET COUNT (AUTO) 260 K/uL (130-430); RED BLOOD CELL COUNT(AUTO) 2.69 MIL/uL (4.2-6.2); RED CELL DISTRIBUTION WIDTH 13.8 % (9.0-15.0); WHITE BLOOD COUNT (AUTO) 8.3 K/uL (4.8-10.8)
[2023-07-11 16:33] VITALS: BP_SYST 106; PULSE 89; RESP 18; TEMP 97.3; O2SAT 98
[2023-07-11 18:07] LABS: TOTAL IRON BIND. CAPACITY 183 ug/dL (250-450)
[2023-07-11 20:00] VITALS: BP_SYST 140; PULSE 88; RESP 18; TEMP 98.5; O2SAT 98
[2023-07-12] VITALS: BP_SYST 146; PULSE 97; RESP 18; TEMP 98.6; O2SAT 98
[2023-07-12 06:34] LABS: ANION GAP 9 (5-15); CALCIUM 7.7 mg/dL (8.4-11.0); CARBON DIOXIDE 24 mmol/L (23-29); CHLORIDE 107 mmol/L (98-107); CREATININE 1.68 mg/dL (0.55-1.30); GLUCOSE 118 mg/dL (74-106); POTASSIUM 3.5 mmol/L (3.5-5.1); SODIUM SERUM 140 mmol/L (136-145); UREA NITROGEN, BLOOD 20 mg/dL (8-21)
[2023-07-12 06:42] LABS: BASOPHILS % (AUTO) 0.6 % (0.0-2.0); EOSINOPHILS # (AUTO) 0.4 K/uL (0.0-0.4); EOSINOPHILS % (AUTO) 5.6 % (0.0-4.0); HEMATOCRIT 24.3 % (36-54); HEMOGLOBIN 8.6 g/dL (14.0-18.0); LYMPHOCYTES # (AUTO) 0.9 K/uL (1.0-5.5); LYMPHOCYTES % (AUTO) 12.1 % (20.5-51.5); MEAN CORPUSCULAR HEMOGLOBIN 30 pg (27-31); MEAN CORPUSCULAR HGB CONC 35 % (32-36); MEAN CORPUSCULAR VOLUME 85 fL (79.0-98.0); MONOCYTES # (AUTO) 0.6 K/uL (0.0-1.0); MONOCYTES % (AUTO) 7.7 % (1.7-9.3); NEUTROPHILS # (AUTO) 5.8 K/uL (1.8-7.7); PLATELET COUNT (AUTO) 274 K/uL (130-430); RED BLOOD CELL COUNT(AUTO) 2.85 MIL/uL (4.2-6.2); RED CELL DISTRIBUTION WIDTH 13.9 % (9.0-15.0); WHITE BLOOD COUNT (AUTO) 7.8 K/uL (4.8-10.8)
[2023-07-12 08:00] VITALS: BP_SYST 143; PULSE 84; RESP 18; TEMP 97.6; O2SAT 99
[2023-07-12 08:06] LABS: FREE PSA 0.25 ng/mL; PROSTATE SPECIFIC AG TOTAL 0.5 ng/mL (0.0-4.0)
[2023-07-12 12:00] VITALS: BP_SYST 145; PULSE 89; RESP 17; TEMP 97.9; O2SAT 97
[2023-07-12] MEDS ORDERED: DOXY100T2 PO (14:18)
[2023-07-12] MEDS ORDERED: ROCPM1 IV (14:18)
[2023-07-12 16:20] VITALS: BP_SYST 144; PULSE 86; RESP 18; TEMP 97.7; O2SAT 98
[2023-07-12 20:00] VITALS: BP_SYST 142; PULSE 81; RESP 18; TEMP 98.1; O2SAT 98
[2023-07-13] VITALS: BP_SYST 147; PULSE 78; RESP 18; TEMP 97.5; O2SAT 98
[2023-07-13 11:05] VITALS: BP_SYST 132; PULSE 85; RESP 14; TEMP 97.9; O2SAT 97
== END 2023-07-13 11:40 | disposition home health service (06) | DRG 871 ==
LOC: SED 10:10 → STU 16:02
PROVIDERS: ADMIT Specialist; ATTEND Specialist
DX: A41.9 Sepsis, unspecified organism (principal); J15.9 Unspecified bacterial pneumonia; J69.0 Pneumonitis due to inhalation of food and vomit; I95.9 Hypotension, unspecified; I10 Essential (primary) hypertension; E11.9 Type 2 diabetes mellitus without complications; N40.0 Benign prostatic hyperplasia without lower urinary tract symptoms; Z79.899 Other long term (current) drug therapy; Z79.4 Long term (current) use of insulin; Z86.73 Personal history of transient ischemic attack (TIA), and cerebral infarction without residual deficits; Z79.82 Long term (current) use of aspirin
CPT/HCPCS: 36415; 70450-TC; 71045; 76700; 80048; 80076; 81000; 81001; 81015; 82948; 83540; 83550; 83605; 84153; 84443; 84484; 85025; 85610; 85730; 86738; 86886; 86900; 86901; 87040; 87086; 87449; 92610-GN; 96361; 96365; 97110-GP; 97116-GP; 97530-GP; 99291; G0378; J0696; J2543; J3370; J7060

== ENCOUNTER 2023-07-25 13:50 | Inpatient (IN) | payer OTHER ==
[~2023-07-25] VITALS: Ht 177.8 cm; Wt 80.3 kg
[2023-07-25 13:50] VITALS: BP_SYST 63; PULSE 63; RESP 18; TEMP 96.9; O2SAT 95
[~2023-07-25 13:50] MED LIST changes: +DOXY100T2 PO; +ROCPM1 IV
[2023-07-25 14:11] LABS: BASOPHILS # (AUTO) 0.1 K/uL (0.0-0.2); BASOPHILS % (AUTO) 1.3 % (0.0-2.0); EOSINOPHILS # (AUTO) 0.2 K/uL (0.0-0.4); EOSINOPHILS % (AUTO) 3.7 % (0.0-4.0); HEMATOCRIT 23.7 % (36-54); HEMOGLOBIN 8.4 g/dL (14.0-18.0); LYMPHOCYTES # (AUTO) 1.1 K/uL (1.0-5.5); LYMPHOCYTES % (AUTO) 20.5 % (20.5-51.5); MEAN CORPUSCULAR HEMOGLOBIN 31 pg (27-31); MEAN CORPUSCULAR HGB CONC 35 % (32-36); MEAN CORPUSCULAR VOLUME 87 fL (79.0-98.0); MONOCYTES # (AUTO) 0.4 K/uL (0.0-1.0); MONOCYTES % (AUTO) 8.1 % (1.7-9.3); NEUTROPHILS # (AUTO) 3.5 K/uL (1.8-7.7); NEUTROPHILS % (AUTO) 66.4 % (40.0-70.0); PLATELET COUNT (AUTO) 285 K/uL (130-430); RED BLOOD CELL COUNT(AUTO) 2.72 MIL/uL (4.2-6.2); WHITE BLOOD COUNT (AUTO) 5.3 K/uL (4.8-10.8)
[2023-07-25 14:29] LABS: ANION GAP 10 (5-15); CALCIUM 8.1 mg/dL (8.4-11.0); CARBON DIOXIDE 25 mmol/L (23-29); CHLORIDE 105 mmol/L (98-107); CREATININE 2.01 mg/dL (0.55-1.30); GLUCOSE 152 mg/dL (74-106); POTASSIUM 3.9 mmol/L (3.5-5.1); SODIUM SERUM 140 mmol/L (136-145); UREA NITROGEN, BLOOD 32 mg/dL (8-21)
[2023-07-25] MEDS: NACL 0.9% 1,000 ML IV ONE (14:36)
[2023-07-25 16:42] LABS: BILIRUBIN,URINE NEGATIVE (NEGATIVE); BLOOD, URINE NEGATIVE (NEGATIVE); CLARITY/URINE CLEAR (CLEAR); COLOR,URINE YELLOW (YELLOW); GLUCOSE,URINE NEGATIVE (NEGATIVE); KETONES,URINE NEGATIVE (NEGATIVE); LEUKOCYTE ESTERASE ,URINE NEGATIVE (NEGATIVE); NITRITE, URINE NEGATIVE (NEGATIVE); PROTEIN URINE 2+ (NEGATIVE); UROBILINOGEN,URINE 0.2 (0.2-1.0)
[2023-07-25 16:50] LABS: BACTERIA,URINE None Seen /HPF (None Seen); MUCUS,URINE 1+ /LPF (None Seen); WBC,URINE 0-3 /HPF (0-3)
[2023-07-25] MEDS: NACL 0.9% 1,000 ML IV SCH (18:06)
[2023-07-25 20:05] VITALS: BP_SYST 127; PULSE 95; RESP 18; TEMP 97.7; O2SAT 98
[2023-07-25 20:43] VITALS: BP_SYST 127; PULSE 95; RESP 18; TEMP 97.7
[2023-07-25] MEDS ORDERED: DIPHENHYDRAMINE HCL 12.5 MG/5 ML UDC PO ONE (23:00)
[2023-07-26] VITALS (7 sets, daily range): BP systolic 122–135; PULSE 66–89; RESP 14–18; TEMP 97.5–98.2; O2SAT 95–99
[2023-07-26] MEDS: ASPIRIN 81 MG TABLET(ECOTRIN) PO ONE (20:30)
[2023-07-26] MEDS: INSULIN GLARGINE 100 UNITS/ML, 10 ML VIAL SQ SCH (21:00)
[2023-07-27 00:31] VITALS: BP_SYST 147; PULSE 88; RESP 18; TEMP 98; O2SAT 97
[2023-07-27] MEDS: LEVOTHYROXINE SODIUM 0.1 MG TABLET PO SCH (06:23)
[2023-07-27 06:55] LABS: BASOPHILS # (AUTO) 0.1 K/uL (0.0-0.2); BASOPHILS % (AUTO) 1.8 % (0.0-2.0); EOSINOPHILS # (AUTO) 0.3 K/uL (0.0-0.4); EOSINOPHILS % (AUTO) 5.2 % (0.0-4.0); HEMATOCRIT 25.9 % (36-54); LYMPHOCYTES # (AUTO) 1.2 K/uL (1.0-5.5); LYMPHOCYTES % (AUTO) 24.1 % (20.5-51.5); MEAN CORPUSCULAR HEMOGLOBIN 30 pg (27-31); MEAN CORPUSCULAR HGB CONC 35 % (32-36); MEAN CORPUSCULAR VOLUME 87 fL (79.0-98.0); MONOCYTES # (AUTO) 0.5 K/uL (0.0-1.0); NEUTROPHILS % (AUTO) 59.9 % (40.0-70.0); PLATELET COUNT (AUTO) 253 K/uL (130-430); RED BLOOD CELL COUNT(AUTO) 2.97 MIL/uL (4.2-6.2); RED CELL DISTRIBUTION WIDTH 14.3 % (9.0-15.0); WHITE BLOOD COUNT (AUTO) 5.1 K/uL (4.8-10.8)
[2023-07-27 07:11] LABS: ANION GAP 7 (5-15); CALCIUM 8.2 mg/dL (8.4-11.0); CARBON DIOXIDE 26 mmol/L (23-29); CHLORIDE 104 mmol/L (98-107); CREATININE 1.53 mg/dL (0.55-1.30); GLUCOSE 96 mg/dL (74-106); POTASSIUM 3.9 mmol/L (3.5-5.1); SODIUM SERUM 137 mmol/L (136-145); UREA NITROGEN, BLOOD 20 mg/dL (8-21)
[2023-07-27 07:41] VITALS: O2SAT 97
[2023-07-27 08:00] VITALS: BP_SYST 147; PULSE 68; RESP 16; TEMP 97.3; O2SAT 97
[2023-07-27] MEDS: ASPIRIN 81 MG TABLET(ECOTRIN) PO SCH (08:52)
[2023-07-27] MEDS: ATORVASTATIN 20 MG TABLET PO SCH (08:53)
[2023-07-27] MEDS: METOPROLOL SUCCINATE 25 MG TAB.SR.24H (TOPROL XL) PO SCH (08:53)
[2023-07-27] MEDS: LOSARTAN POTASSIUM 50 MG TABLET (COZAAR) PO SCH (08:54)
[2023-07-27] MEDS ORDERED: ROSUVASTATIN CALCIUM 5 MG/TAB (CRESTOR) PO SCH (09:00)
[2023-07-27 11:00] VITALS: BP_SYST 119; PULSE 67; RESP 14; TEMP 98.1; O2SAT 98
[2023-07-27 16:05] VITALS: BP_SYST 116; PULSE 65; RESP 14; TEMP 98.2; O2SAT 98
[2023-07-27 20:00] VITALS: BP_SYST 133; PULSE 69; RESP 18; TEMP 97.3; O2SAT 95; O2SAT 96
[2023-07-27] MEDS: INSULIN REGULAR, HUMAN 100 UNITS/ML, 3 ML VIAL (humuLIN R) SUBCUT PRN (21:40)
[2023-07-28] VITALS: BP_SYST 146; PULSE 89; RESP 18; TEMP 97.5; O2SAT 99
[2023-07-28 04:00] VITALS: BP_SYST 128; PULSE 89; RESP 18; TEMP 97.7; O2SAT 96
[2023-07-28 06:32] LABS: BASOPHILS # (AUTO) 0.1 K/uL (0.0-0.2); BASOPHILS % (AUTO) 1.7 % (0.0-2.0); EOSINOPHILS # (AUTO) 0.3 K/uL (0.0-0.4); EOSINOPHILS % (AUTO) 5.4 % (0.0-4.0); HEMATOCRIT 25.2 % (36-54); HEMOGLOBIN 8.9 g/dL (14.0-18.0); LYMPHOCYTES # (AUTO) 1.3 K/uL (1.0-5.5); LYMPHOCYTES % (AUTO) 21.6 % (20.5-51.5); MEAN CORPUSCULAR HEMOGLOBIN 31 pg (27-31); MEAN CORPUSCULAR HGB CONC 35 % (32-36); MEAN CORPUSCULAR VOLUME 87 fL (79.0-98.0); MONOCYTES # (AUTO) 0.5 K/uL (0.0-1.0); MONOCYTES % (AUTO) 8.7 % (1.7-9.3); NEUTROPHILS # (AUTO) 3.7 K/uL (1.8-7.7); NEUTROPHILS % (AUTO) 62.6 % (40.0-70.0); PLATELET COUNT (AUTO) 253 K/uL (130-430); RED BLOOD CELL COUNT(AUTO) 2.91 MIL/uL (4.2-6.2); RED CELL DISTRIBUTION WIDTH 14.5 % (9.0-15.0)
[2023-07-28 06:49] LABS: ANION GAP 8 (5-15); CALCIUM 8.3 mg/dL (8.4-11.0); CARBON DIOXIDE 25 mmol/L (23-29); CHLORIDE 104 mmol/L (98-107); CREATININE 1.55 mg/dL (0.55-1.30); GLUCOSE 100 mg/dL (74-106); SODIUM SERUM 137 mmol/L (136-145); UREA NITROGEN, BLOOD 20 mg/dL (8-21)
[2023-07-28 07:42] VITALS: BP_SYST 124; PULSE 70; RESP 13; TEMP 96.9; O2SAT 96
[2023-07-28 09:15] VITALS: O2SAT 96
[2023-07-28 12:30] VITALS: BP_SYST 127; PULSE 53; RESP 16; TEMP 97.4; O2SAT 100
[2023-07-28 13:32] VITALS: BP_SYST 127; PULSE 53; RESP 16; O2SAT 100
== END 2023-07-28 14:26 | disposition home health service (06) | DRG 640 ==
LOC: SED 13:50 → STU 17:52 → SMU 07-27 17:57 → OBSVTOIN 07-28 13:55
PROVIDERS: ADMIT Specialist; ATTEND Specialist
PROC: 4A00X4Z Measurement of Central Nervous Electrical Activity, External Approach (ICD-10-PCS; principal; 2023-07-28)
DX: E86.0 Dehydration (principal); N17.0 Acute kidney failure with tubular necrosis; E03.9 Hypothyroidism, unspecified; E11.9 Type 2 diabetes mellitus without complications; E78.5 Hyperlipidemia, unspecified; I95.9 Hypotension, unspecified; I10 Essential (primary) hypertension; Z85.51 Personal history of malignant neoplasm of bladder; Z86.73 Personal history of transient ischemic attack (TIA), and cerebral infarction without residual deficits; Z79.4 Long term (current) use of insulin; Z79.899 Other long term (current) drug therapy; Z79.82 Long term (current) use of aspirin; G40.909 Epilepsy, unspecified, not intractable, without status epilepticus
CPT/HCPCS: 36415; 70450-TC; 70551; 71045; 80048; 81000; 81001; 81015; 82948; 84443; 84484; 85025; 87081; 93306; 95816; 97110-GP; 97116-GP; 97530-GP; G0378; J1815